=== PATIENT | male | born 1970 | race Two or more races ===

== ENCOUNTER 2018-09-06 11:03 | Inpatient (IN) | payer MEDICAID ==
[~2018-09-06] VITALS: Ht 190.5 cm; Wt 101.0 kg
--- NOTE | 2018-09-06 11:30 | NUR ---
PT ARRIVED AMBULATORY TO ROOM 3. PT C/O SOB X 6 WEEKS. ADMITTED AT [facility] YESTERDAY AND WAS DIAGNOSED WITH AN EF OF 15%. POTENTIALLY DUE TO "HEART SWELLING OR FLUID AROUND HIS HEART THAT COULD BE INFECTIOUS" PT STATES THE MEDICATION HE WAS RECEIVING WAS GIVING HIM A MIGRAINE. PT LEFT AMA THIS MORNING. STATES STILL SOB. PIV ESTABLISHED, VSS, PT ATTACHED TO MONITOR, DRESSED IN GOWN, EDUCATED ON POC. PT RESTING IN RNEY, CALL LIGHT AND BELONGINGS WITHIN REACH.
[2018-09-06 12:10] LABS: BASOPHILS # (AUTO) 0.04 x10^3/uL (0-0.1); BASOPHILS % (AUTO) 1 % (0-1); EOSINOPHILS # (AUTO) 0.11 x10^3/uL (0-0.4); EOSINOPHILS % (AUTO) 1 % (1-7); LYMPHOCYTES % (AUTO) 21 % (22-44); MD NO; MEAN CORPUSCULAR HEMOGLOBIN 28.6 pg (27.5-34.5); MEAN CORPUSCULAR HGB CONC 32.8 g/dL (33.2-36.2); MEAN CORPUSCULAR VOLUME 87.3 fL (81-97); MONOCYTES # (AUTO) 0.52 x10^3/uL (0.2-0.8); MONOCYTES % (AUTO) 7 % (2-9); NEUTROPHILS # (AUTO) 5.26 x10^3/uL (1.8-6.8); NEUTROPHILS % (AUTO) 70 % (42-75); PLATELET COUNT 286 x10^3/uL (130-400); RED BLOOD COUNT 5.23 x10^6/uL (4.38-5.82); RED CELL DISTRIBUTION WIDTH 13.9 % (9.4-14.8)
[2018-09-06 12:27] LABS: ALBUMIN 3.5 g/dL (3.4-5.0); ANION GAP 9 mmol/L (5-15); CALCIUM 8.6 mg/dL (8.5-10.1); CHLORIDE 110 mmol/L (98-107); CREATININE 1.11 mg/dL (0.7-1.3)
[2018-09-06] MEDS ORDERED: KETOROLAC 30 MG/1 ML ONE (12:27)
[2018-09-06] MEDS ORDERED: DIPHENHYDRAMINE 50 MG/ML, 1ML ONE (12:27)
[2018-09-06] MEDS ORDERED: PROCHLORPERAZINE 5 MG/ML, 2ML ONE (12:27)
[2018-09-06 12:30] LABS: TROPONIN I 0.029 ng/mL (0.000-0.045)
[2018-09-06] MEDS ORDERED: PROCHLORPERAZINE 5 MG/ML, 2ML IVPush ONE (12:30)
[2018-09-06] MEDS ORDERED: KETOROLAC 30 MG/1 ML IV ONE (12:30)
[2018-09-06] MEDS ORDERED: DIPHENHYDRAMINE 50 MG/ML, 1ML IVPush ONE (12:30)
--- NOTE | 2018-09-06 12:33 | NUR ---
MEDICATED PER MAR.
--- NOTE | 2018-09-06 14:00 | NUR ---
PT EATING IN [facility], WAITING ON ROOM ADMISSION.
--- NOTE | 2018-09-06 14:04 | NUR ---
PT SLEEPING, VSS. FALL PRECAUTIONS IN PLACE.
--- NOTE | 2018-09-06 14:38 | NUR ---
PT TO TRANSFER TO ROOM 509-2, REPORT GIVEN TO MARINA CUELLAR.
[2018-09-06] MEDS ORDERED: ONDANSETRON 2MG/ML, 2ML IVPush PRN (15:30)
[2018-09-06] MEDS ORDERED: LABETALOL 5MG/ML, 20ML IVPush PRN (15:30)
[2018-09-06] MEDS ORDERED: ONDANSETRON ODT 4 MG PO PRN (15:30)
[2018-09-06] MEDS ORDERED: ACETAMINOPHEN 325 MG TABLET PO PRN (15:30)
[2018-09-06] MEDS ORDERED: morphine SULFATE 10 MG/ML, 1ML IVPush PRN (15:30)
[2018-09-06] MEDS ORDERED: NITROGLYCERIN 0.4 MG BOTTLE (25 TABS) SL PRN (15:30)
[2018-09-06 15:37] LABS: HCT (SEDRATE) 44.6 % (39.2-51.8)
[2018-09-06 15:41] LABS: AMPHETAMINE SCREEN, URINE Positive (Negative); BARBITURATE SCREEN, URINE Negative (Negative); BENZODIAZEPINE SCREEN, URINE Negative (Negative); CANNABINOID SCREEN, URINE Negative (Negative); COCAINE SCREEN, URINE Negative (Negative); METHADONE SCREEN, URINE Negative (Negative); OPIATE SCREEN, URINE Negative (Negative)
[2018-09-06 15:52] LABS: TROPONIN I 0.052 ng/mL (0.000-0.045)
[2018-09-06] MEDS ORDERED: ENOXAPARIN 40 MG/0.4 ML SQ SCH (16:00)
[2018-09-06 16:02] LABS: INTERNATIONAL NORMALIZED RATIO 1.02 (0.93-1.1); PROTHROMBIN TIME 10.7 Seconds (9.6-11.5)
[2018-09-06 16:24] VITALS: BP 134/89
[2018-09-06] MEDS ORDERED: ALBUTEROL/IPRATROPIUM 2.5MG/0.5MG, 3 ML ONE (16:59)
[2018-09-06] MEDS ORDERED: FUROSEMIDE 40 MG/4 ML IV SCH (17:00)
[2018-09-06 17:10] VITALS: BP 139/92
[2018-09-06] MEDS ORDERED: ALBUTEROL SULFATE 2.5 MG/3 ML NPPB PRN (17:30)
[2018-09-06] MEDS ORDERED: CARVEDILOL 3.125 MG TABLET PO SCH (18:00)
[2018-09-06] MEDS ORDERED: ASPIRIN 81 MG TABLET EC PO ONE (18:00)
[2018-09-06] MEDS ORDERED: LORazepam 0.5MG TABLET PO PRN (18:00)
[2018-09-06 19:41] VITALS: BP 132/98
[2018-09-06] MEDS ORDERED: ATORVASTATIN 40 MG TABLET PO SCH (21:00)
[2018-09-07] MEDS ORDERED: ASPIRIN 81 MG TABLET CHEW PO SCH (09:00)
[2018-09-07] MEDS ORDERED: LISINOPRIL 5 MG TABLET PO SCH (09:00)
== END 2018-09-06 20:00 | disposition left against medical advice (07) | DRG 917 ==
LOC: ED 13:46 → EDIP 13:47 → ED 13:57 → 5SO 15:46
PROVIDERS: ADMIT Internal Medicine; ATTEND Internal Medicine
DX: T43.621A Poisoning by amphetamines, accidental (unintentional), initial encounter (principal); I50.23 Acute on chronic systolic (congestive) heart failure; I11.0 Hypertensive heart disease with heart failure; Z53.21 Procedure and treatment not carried out due to patient leaving prior to being seen by health care provider; F15.10 Other stimulant abuse, uncomplicated; F41.9 Anxiety disorder, unspecified; G43.909 Migraine, unspecified, not intractable, without status migrainosus; Z82.49 Family history of ischemic heart disease and other diseases of the circulatory system; R91.1 Solitary pulmonary nodule; R73.9 Hyperglycemia, unspecified; Y92.89 Other specified places as the place of occurrence of the external cause
CPT/HCPCS: 36415; 99285; J7613; 71045; 80048; 80307; 82040; 83880; 84443; 84484; 85025; 85610; 85651; 85730; 93005; 94640; 96374; 96375; G0378; J1650; J1885; J1940; J0780; J1200